=== PATIENT | male | born 2000 | race Caucasian/White ===

== ENCOUNTER 2019-12-26 00:07 | Emergency (ER) | payer BC ==
[~2019-12-26] VITALS: Ht 172.7 cm; Wt 70.8 kg
[2019-12-26 00:09] VITALS: BP 130/84
[2019-12-26] MEDS ORDERED: LIDOCAINE-MPF 1%, 5ML ONE (00:21)
[2019-12-26] MEDS ORDERED: LIDOCAINE-MPF 1%, 5ML INFIL ONE (00:30)
--- NOTE | 2019-12-26 00:52 | NUR ---
TASK RN: WOUND CARE COMPLETED BY KAMRAN HUSTON. DC EDUCATION PROVIDED, PT DEMONSTRATES UNDERSTANDING. PT AMBULATED STEADILY TO DC WITH RN AND FRIEND.
== END 2019-12-26 00:57 | disposition home or self-care (01) ==
LOC: ED 00:24
DX: S61.412A Laceration without foreign body of left hand, initial encounter (principal); W25.XXXA Contact with sharp glass, initial encounter; Y93.89 Activity, other specified; Y92.009 Unspecified place in unspecified non-institutional (private) residence as the place of occurrence of the external cause; Y99.8 Other external cause status
CPT/HCPCS: 12041; 99284

== ENCOUNTER 2020-01-04 20:12 | Emergency (ER) | payer BC ==
[~2020-01-04] VITALS: Ht 172.7 cm; Wt 71.8 kg
[2020-01-04 20:14] VITALS: BP 102/72
--- NOTE | 2020-01-04 20:28 | NUR ---
TWO SUTURES REMOVED, PATIENT STATED THE THIRD ONE "POPPED OFF."
== END 2020-01-04 20:42 | disposition home or self-care (01) ==
LOC: ED 20:37
DX: S61.211D Laceration without foreign body of left index finger without damage to nail, subsequent encounter (principal); X58.XXXD Exposure to other specified factors, subsequent encounter
CPT/HCPCS: 99281

== ENCOUNTER 2020-01-04 22:25 | Emergency (ER) | payer BC ==
[~2020-01-04] VITALS: Ht 172.7 cm; Wt 71.4 kg
[2020-01-04 22:26] VITALS: BP 145/90
--- NOTE | 2020-01-04 22:35 | NUR ---
PT WAS DC'D FROM ER AFTER HAVING 2 SUTURES REMOVED EARLIER. PT RETURNS D/T WOUND REOPENING. NO BLEEDING NOTED.
== END 2020-01-04 22:57 | disposition home or self-care (01) ==
LOC: ED 22:49
DX: S61.211D Laceration without foreign body of left index finger without damage to nail, subsequent encounter (principal); X58.XXXD Exposure to other specified factors, subsequent encounter
CPT/HCPCS: 99281